=== PATIENT | female | born 1945 | race Caucasian/White ===

== ENCOUNTER 2016-08-18 13:00 | Outpatient (RCR) | payer MEDICARE, OTHER | END 2016-08-26 12:00 | disposition home or self-care (01) | LOC: PT 13:00 | DX: R29.898 Other symptoms and signs involving the musculoskeletal system (principal) | CPT/HCPCS: 97001; 97035; 97110; 97140; G8978; G8979 ==

== ENCOUNTER → 2016-09-30 | Outpatient (CLI) | payer MEDICARE, OTHER | LOC: RAD 14:00 | PROVIDERS: ATTEND Family Medicine | DX: Z12.31 Encounter for screening mammogram for malignant neoplasm of breast (principal) ==

== ENCOUNTER → 2017-01-14 | Outpatient (CLI) | payer MEDICARE, OTHER ==
[~2017-01-14] MED LIST: ALDENDRONATE PO; ALEN70TA47 PO; BRIN8DRO OU; CALC-656 PO; CHOL10002 PO; IRON1TAB90 PO; LATA2.5D5 OU; MESA500C PO; MULT-351 PO; NFAMINITAB PO; OMG1KC PO; TML25OP25 OU
[2017-01-14 14:46] VITALS: BP 118/74
--- NOTE | 2017-01-14 14:46 | Urgent Care T Sheet Gen (E) ---
Intake General Temperature (Fahrenheit): 99.4 Pulse: 78 Blood Pressure Systolic: 118 Blood Pressure Diastolic: 74 Respirations: 18 SPO2: 96 Description of Symptoms Patient presents with a several day history of an itchy, red rash to the posterior neck. Denies any exposure to poison oxana, etc. No new shampoos or soaps. states she is stressed and wonders if it is shingles. Does have Crohn' s disease. States her skin does tend to flare up every once in a while. Started using prescription triamcinolone 0.1% cream last night and took a 24 hr allergy pill this morning. History of Present Illness Allergies: Coded Allergies: No Known Allergies (Unverified Allergy, 12/31/12) Home Meds Reported Medications Brinzolamide/Brimonid Tart (Simbrinza 1%-0.2% Eye Drops)8 Ml Drops.susp1 Drop OU BID 12/17/14 Vitamin C/Vitamin E (Ocuvite (Non-Formulary))1 Tab Tab1 Tab PO DAILY 12/17/14 Timolol Maleate (Timoptic 0.25%)15 Ml Soln1 Drop OU DAILY 12/17/14 Latanoprost 2.5 Ml Drops1 Drop OU HS 12/17/14 Alendronate Sodium 70 Mg Afqcco62 Mg PO WEEKLY 12/17/14 Cholecalciferol (Vitamin D3) (Vitamin D3)1,000 Unit Tab1,000 Unit PO DAILY 12/17/14 Iron,Carbonyl/Ascorbic Acid (Iron 100-Vitamin C Tablet)1 Each Tablet1 Each PO DAILY 12/17/14 [place] 3 Polyunsat Fatty Acids (Fish Oil)1,000 Mg Cap1,000 Mg PO DAILY 12/17/14 Multivitamin (Daily Vitamin Formula)1 Each Tablet1 Each PO DAILY 12/17/14 Calcium Carbonate/Vitamin D3 (Calcium 500 + D Tablet)1 Each Tablet1 Each PO DAILY 12/17/14 Mesalamine (Pentasa)500 Mg Capsule.er500 Mg PO QID #2 12/28/12 Respiratory Constitutional Symptoms: No syptoms reported EENTM: No symptoms reported Respiratory: No symptoms reported Cardiovascular: No symptoms reported Skin: Rash All Other Systems Reviewed Remaining Systems: All other systems reviewed with negative findings Past Iibjbiy-Vxgntg-Yxfmzv Hx Surgeries/Hospitalizations Hospitalization/Surgery Hx: Tonsillectomy. Chela. Exploratory Laparotomy-sigmoid resection.Right breast biopsy. Left eye floaters removed from eye. Cataract Respiratory Respiratory History: Other, see comment Comment: History of pneumonia. Cardiovascular Cardiovascular History: None Neuro/Muscular Neuro/Muscular History: Arthirits, Glaucoma, Visual impairment Genitouinary Genitourinary History: None Gastrointestinal GI/Endocrine History: Diarrhea, Other, see comment, None Comment: History of Crohns Disease. History of anemia Diabetes Diabetes: No Integumentary Integumentary History: Other, see comments Comment: rashes and breakouts-sensitive skin. Cancer History of Cancer?: No Physical Exam Physical Exam General Appearance: WD/WN No apparent distress Skin Exam: Rash (red, macular rash noted along the posterior neck, mostly along the hairline and extending upward slightly into the hair. blanchable. dry, no drainage. not warm or painful to the touch. crosses midline. very little redness distally from hairline.) Departure Urgent Care Impression Impression: Primary Impression: Rash Departure Disposition: 01 HOME OR SELF-CARE Condition: Stable Referrals: SID NOYOLA MD (PCP) Additional Instructions: Reassured the patient that this isn't shingles since it crosses mid-line. She was very concerned. Reassured her that she is doing everything correct. Continue with Triamcinolone cream as prescribed. Continue with daily antihistamine. May use Benadryl as well if itching gets really bothersome. Return as needed Patient understands DC instructions. All questions were answered. End of report . OMAR CARRION January 14, 2017 14:46
== END ==
LOC: MHUC 14:00
PROVIDERS: ATTEND Physician Assistant
DX: R21 Rash and other nonspecific skin eruption (principal)
CPT/HCPCS: 99213